=== PATIENT | male | born 1970 | race Caucasian/White ===

== ENCOUNTER 2025-01-16 06:18 | Emergency (ER) | payer OTHER, SELFPAY ==
[2025-01-16 06:26] VITALS: BP 161/99; PULSE 88; RESP 18; O2SAT 99; BMI 28.2
[2025-01-16] MEDS: PROPARACAINE 0.5% OPHTH SOL 1 DROPS EYE-BOTH (06:37)
[2025-01-16] MEDS: FLUORESCEIN 1 MG STRIP EYE-LEFT (06:37)
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
--- NOTE | 2025-01-16 07:03 | PC.NURSE ---
ada lens placed in left eye and irrigation started with LR
== END 2025-01-16 07:33 | disposition home or self-care (01) ==
PROVIDERS: Emergency Provider Emergency Medicine
DX: T15.92XA Foreign body on external eye, part unspecified, left eye, initial encounter (principal); Z88.2 Allergy status to sulfonamides
CPT/HCPCS: 99282